=== PATIENT | female | born 1940 | race Caucasian/White ===

== ENCOUNTER 2018-07-28 02:35 | Emergency (ER) | payer OTHER ==
[~2018-07-28] VITALS: Ht 157.5 cm; Wt 58.5 kg
[~2018-07-28 02:35] MED LIST: ACCUNEB SO1.25 MG/1; AZITHROMYCIN 2250 MG; CALCIUM 500+D1 EAC2; KLOR-CON 10 ER10 MEQ; LEVOTHYROXINE0.05 MG PO; MACROBID 100 M100 M2 PO; MAGNESIUM; PROMETHAZINE V480 M1; TESSALON PERLE100 MG; TOPROL XL50 MG PO; estrogen; maxide
[2018-07-28 03:38] LABS: HEMATOCRIT 43.8 % (37.0-47.0); MCHC 34.2 g/dL (28.0-37.0); MCV 90.7 fL (80.0-100.0); RBC 4.83 mil/uL (4.20-5.00); RDW 13.2 % (10.5-14.5); WBC 8.8 thou/uL (4.0-11.0)
[2018-07-28 03:42] LABS: CALCIUM 8.7 mg/dL (8.5-10.1); CREATININE 0.7 mg/dL (0.6-1.0); POTASSIUM 3.5 mmol/L (3.5-5.1)
[2018-07-28 03:45] LABS: URINE BILIRUBIN NEGATIVE (Negative); URINE BLOOD 2+ (Negative); URINE CLARITY CLEAR; URINE COLOR YELLOW; URINE GLUCOSE-RANDOM* NEGATIVE (Negative); URINE KETONES TRACE (Negative); URINE LEUKOCYTES-REFLEX NEGATIVE (Negative); URINE NITRITE-REFLEX NEGATIVE (Negative); URINE PROTEIN (DIPSTICK) NEGATIVE (Negative); URINE UROBILINOGEN 0.2 E.U./dl (0.2-1.0)
[2018-07-28 04:10] LABS: CASTS None Seen /LPF (None Seen); MUCUS None Seen strn/LPF (None Seen); SQUAMOUS 4-10 Moderate /LPF (0-3)
[2018-07-28 04:11] LABS: BACTERIA-REFLEX None Seen /HPF (None Seen); CRYSTALS None Seen /LPF (None Seen); URINE RBC 3-10 Few /HPF (0-2); URINE WBC-REFLEX None Seen /HPF (0-5)
[2018-07-28] MEDS ORDERED: TESSALON PERLE100 MG PO (05:25)
[2018-07-28] MEDS ORDERED: ZPAK PO (05:25)
[2018-07-28 05:41] VITALS: BP 132/69
== END 2018-07-28 05:41 | disposition home or self-care (01) ==
LOC: ER 02:35
PROVIDERS: Emergency Medicine
DX: J06.9 Acute upper respiratory infection, unspecified (principal); F17.210 Nicotine dependence, cigarettes, uncomplicated; I10 Essential (primary) hypertension; Z88.8 Allergy status to other drugs, medicaments and biological substances; Z90.710 Acquired absence of both cervix and uterus

== ENCOUNTER → 2018-12-28 | Outpatient (CLI) | payer OTHER ==
[~2018-12-28] MED LIST changes: +TESSALON PERLE100 MG PO; +ZPAK PO
== END ==
LOC: RAD 10:47
DX: M47.812 Spondylosis without myelopathy or radiculopathy, cervical region (principal); Z88.1 Allergy status to other antibiotic agents; Z88.8 Allergy status to other drugs, medicaments and biological substances

== ENCOUNTER → 2018-12-31 | Outpatient (CLI) | payer OTHER | LOC: MRI 10:16 | DX: M47.22 Other spondylosis with radiculopathy, cervical region (principal); M48.02 Spinal stenosis, cervical region; W19.XXXA Unspecified fall, initial encounter ==

== ENCOUNTER 2019-01-03 20:07 | Emergency (ER) | payer OTHER ==
[~2019-01-03] VITALS: Ht 157.5 cm; Wt 58.1 kg
[2019-01-03 21:07] LABS: HEMATOCRIT 40.9 % (37.0-47.0); MCHC 34.3 g/dL (28.0-37.0); MCV 90.4 fL (80.0-100.0); RBC 4.52 mil/uL (4.20-5.00); RDW 13.9 % (10.5-14.5); WBC 5.3 thou/uL (4.0-11.0)
[2019-01-03 21:15] LABS: ANION GAP 7 mmol/L (7-16); BUN 16 mg/dL (7-18); CALCIUM 9.1 mg/dL (8.5-10.1); CHLORIDE 98 mmol/L (98-107); CO2 29 mmol/L (21-32); CREATININE 0.8 mg/dL (0.6-1.0); GLUCOSE 105 mg/dL (74-106); POTASSIUM 3.7 mmol/L (3.5-5.1); SODIUM 134 mmol/L (136-145)
[2019-01-03 21:23] LABS: TROPONIN-I <0.06 ng/mL (<0.06)
[2019-01-03 22:22] VITALS: BP 156/76
--- NOTE | 2019-01-04 00:09 | EKG ---
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 : 1940 Requested By: Layla Ernst Order Number: [id number] MD: uSman Tijerina Measurements Intervals Victor Rate: 57 P: 38 CO: 166 QRS: -32 QRSD: 92 T: 36 QT: 440 QTc: 429 Interpretive Statements Sinus rhythm Left axis deviation Poor R wave progression consider anterior infarct age indeterminate nonspecific st/t wave changes No previous ECG available for comparison Electronically Signed On 01-04-2019 0:09:39 CDT by Suman Tijerina [email or web address] ��������������������������������������������� <ELECTRONICALLY SIGNED> ���������������������������������������� By: Suman Tijerina MD ��������������������������������������������� 01/04/19 0009 37 37 Suman Tijerina MD /EPI
== END 2019-01-03 22:23 | disposition home or self-care (01) ==
LOC: ER 20:07
PROVIDERS: Emergency Medicine
DX: I10 Essential (primary) hypertension (principal); M79.602 Pain in left arm; Z87.891 Personal history of nicotine dependence; Z88.8 Allergy status to other drugs, medicaments and biological substances